=== PATIENT | female | born 1980 | race Caucasian/White ===

== ENCOUNTER 2021-03-01 22:55 | Emergency (ER) | payer MEDICAID, OTHER ==
[~2021-03-01] VITALS: Ht 167.6 cm; Wt 102.1 kg
[2021-03-01 23:16] VITALS: BP_SYST 141
[2021-03-02] MEDS ORDERED: DIPH-TET-PERTUS Vaccine 0.5 ML VIAL (ADACEL) I.M. ONE (03:15)
[2021-03-02] MEDS ORDERED: AMOX-426 PO (03:25)
[2021-03-02 03:30] VITALS: BP_SYST 113
== END 2021-03-02 03:30 | disposition home or self-care (01) ==
LOC: SED 22:55
DX: S81.852A Open bite, left lower leg, initial encounter (principal); I10 Essential (primary) hypertension; Z79.899 Other long term (current) drug therapy; W54.0XXA Bitten by dog, initial encounter; Y93.89 Activity, other specified; Y92.89 Other specified places as the place of occurrence of the external cause; Y99.8 Other external cause status
CPT/HCPCS: 90715; 99283

== ENCOUNTER 2021-04-06 17:16 | Emergency (ER) | payer OTHER ==
[~2021-04-06] VITALS: Ht 167.6 cm; Wt 99.8 kg
[~2021-04-06 17:16] MED LIST: AMOX-426 PO
[2021-04-06 17:30] VITALS: BP_SYST 130
--- NOTE | 2021-04-06 17:30 | NUR ---
Pt to [facility] for evaluation.
--- NOTE | 2021-04-06 17:45 | NUR ---
pt c/o left knee and right arm pain s/p fall. denies head neck of back pain. denies LOC
--- NOTE | 2021-04-06 17:53 | NUR ---
dr parikh evaluating pt
--- NOTE | 2021-04-06 19:10 | NUR ---
Received endorsement from day shift, AAOX4, breathing spontaneously at room air, not in distress noted.
[2021-04-06] MEDS ORDERED: HYDR-3917 PO (19:31)
[2021-04-06] MEDS ORDERED: IBUP-1969 PO (19:31)
[2021-04-06] MEDS ORDERED: BACITRACIN 1 GM OINT TP ONE (20:11)
[2021-04-06 20:19] VITALS: BP_SYST 128
--- NOTE | 2021-04-06 20:19 | NUR ---
IMMOBILIZER Splint applied to LEFT LEG. pulse noted. Capillary refill <3 seconds. Patient has ability to move non-splinted digits. Has sensation present to affected site. Skin color within normal limits. Applied for pain management control.
--- NOTE | 2021-04-06 20:20 | NUR ---
Patient given written and verbal discharge instructions and verbalizes understanding. DR. LIMA IBARRA MD discussed with patient the results and treatment provided. Patient in stable condition. ID arm band removed. Rx PER MD. Patient educated on pain management and to follow up with PMD. Pain Scale 0/10. Opportunity for questions provided and answered. Medication side effect fact sheet provided.
--- NOTE | 2021-04-06 20:22 | NUR ---
LEG ABRASION ON LEFT LEG cleansed with NORMAL SALINE AND BACITRACIN APPLIED. NONADHERENT dressing applied. Tetanus vaccination current.
== END 2021-04-06 20:22 | disposition home or self-care (01) ==
LOC: SED 17:16
DX: S83.92XA Sprain of unspecified site of left knee, initial encounter (principal); I10 Essential (primary) hypertension; Z79.899 Other long term (current) drug therapy; W18.39XA Other fall on same level, initial encounter; Y93.89 Activity, other specified; Y92.89 Other specified places as the place of occurrence of the external cause; Y99.8 Other external cause status
CPT/HCPCS: 73564; 99283